=== PATIENT | male | born 2000 | race Caucasian/White ===

== ENCOUNTER 2022-06-02 15:42 | Emergency (ER) | payer OTHER, MEDICAID, SELFPAY ==
[2022-06-02 16:32] VITALS: BP 138/62; PULSE 80; RESP 20; TEMP 36.6; O2SAT 98; BMI 31.4
--- NOTE | 2022-06-02 18:45 | ED.MALEGU ---
HPI - Male Genitourinary General Chief complaint: Urogenital-Male Stated complaint: Blood in Urine Time Seen by Provider: 06/02/22 18:44 Source: family Mode of arrival: Wheelchair Limitations: no limitations History of Present Illness HPI Narrative: This is a 21-year-old male with history of Angelman syndrome, seizure disorder, behavioral issues and peptic ulcer disease. Mom states she noticed that over the last several days his urine has been dark and had an odor, today she noticed blood when he urinated that seems to be just very small amount or pinkish coloration. Patient is incontinence so he urinates and diapers. Patient has not had fevers. He seems slightly more irritated than normal. He is nonverbal. She has not appreciated significant changes in his mentation. Patient has not had any nausea or vomiting, no chest pain or shortness of breath, no new diarrhea or constipation issues. He does take MiraLax fairly regularly for constipation but has been stooling regularly. She has not appreciate any changes to genitalia, no swelling, redness, rashes or other changes. She states he is allergic to Vantin and lamotrigine. She states would be helpful to use an antibiotic that can be crushed but he can take small pills. Related Data Previous Rx's Medication Instructions Recorded sulfamethoxazole 800 1 tab PO Q12H #14 tabs 06/02/22 mg-trimethoprim 160 mg tablet (Bactrim DS) Allergies Allergy/AdvReac Type Severity Reaction Status Date / Time cefpodoxime [From Vantin] Allergy Hives Verified 06/02/22 16:31 lamotrigine [From Lamictal] Allergy Rash Verified 06/02/22 16:31 Review of Systems Review of Systems ROS Unobtainable: All systems reviewed & are unremarkable except as noted in HPI and below Patient History Social History Smoking Status: Never smoker Smoking Status: Never smoker Substance Use Type: does not use Exam Narrative Exam Narrative: GENERAL: Alert, male interactive, smiling HEENT: Head normocephalic, atraumatic, EOMI, pupils reactive, face symmetric, moist mucous membranes NECK: Supple, full range of motion CARDIOVASCULAR: Regular rate and rhythm without murmurs, rubs or gallops. RESPIRATORY: Breath sounds equal bilaterally, no wheezes rales or rhonchi. ABDOMEN: Soft, nontender. Normoactive bowel sounds all 4 quadrants. No guarding or rebound, rigidity, no mass : No CVA tenderness EXTREMITIES: Normal range of motion upper extremities. Patient's seated in wheelchair.. Neurovascularly intact NEUROLOGICAL: Cranial nerves II through XII grossly intact. Moving all extremities SKIN: Warm, dry, no petechiae, no rashes or lesions. Initial Vital Signs Initial Vital Signs: Vital Signs Temperature 98 F 06/02/22 16:32 Pulse Rate 80 06/02/22 16:32 Respiratory Rate 20 06/02/22 16:32 Blood Pressure 138/62 06/02/22 16:32 Pulse Oximetry 98 06/02/22 16:32 Oxygen Delivery Method 06/02/22 16:32 Course Orders Ordered: Discontinued Medications Trimethoprim/Sulfamethoxazole (Trimeth/Sulfa 160/800 (Ds) Tablet) 1 tab PO NOW ONE Stop: 06/02/22 19:00 Last Admin: 06/02/22 19:23 Dose: 1 tab Documented By: SB Vital Signs Vital signs: Vital Signs - 8 hr 06/02/22 16:32 Temperature 98 F Pulse Rate 80 Respiratory Rate 20 Blood Pressure 138/62 Pulse Oximetry 98 Oxygen Delivery Method Room Air MDM - Male Genitourinary Lab Data Labs: Lab Results 06/02/22 Range/Units 19:01 Urine RBC 5-10/hpf H (0-5/HPF) Urine WBC 5-10/hpf H (0-5/HPF) Ur Squamous Epith Cells 1-5 /hpf (0-5/HPF) Amorphous Sediment 1+ Urine Bacteria Many (>30) H (None) Urine Dip Bedside Urine Glucose Negative Bedside Urine Bilirubin - Negative Bedside Urine Ketone - Negative Urine Specific [place] 1.015 Bedside Urine Occult Blood +++ Bedside Urine pH 6.5 Bedside Urine Protein + 30 Bedside Urine Urobilinogen - Negative Bedside Urine Nitrite + Positive Bedside Urine Leukocytes + 70 Esterase MDM Narrative Medical decision making narrative: This is a 21-year-old male with change in urination with odor, mom appreciate some blood, seems a little bit more irritated but otherwise normal baseline. Mom appreciates that he does take baths regularly and sometimes accidentally has stool in the bath tub water. But has never had any known UTIs or urine issues has nitrates, leuks and blood on his urine patient does not appear to be in significant pain making kidney stone less likely discussion with mother will treat with antibiotics for UTI with return precautions. Discharge Plan Departure Patient Disposition: Home Clinical Impression: Urinary tract infection Instructions: DI for Urinary Tract Infection (UTI) Activity Restrictions/Additional Instructions: Follow-up with your physician for recheck if symptoms have not resolved. Urine culture takes 48-72 hours to result if your urine culture shows resistance you would be contacted to change antibiotics. Take Bactrim 1 tablet twice daily until gone. You can crush this medication. Prescription sent to [facility] in [place]. Please return for fevers, changes in mental status, persistent vomiting, increasing difficulty with urination, large frequent blood clots, if you are not making urine, or have other new or concerning changes. Prescriptions: New sulfamethoxazole-trimethoprim [Bactrim DS] 800-160 mg tablet 1 tab PO Q12H Qty: 14 0RF Referrals: Miscellaneous,Doctor, MD [Primary Care Provider] - Visit Report Forms: Patient Portal/API
--- NOTE | 2022-06-02 19:03 | PC.NURSE ---
pt is developementally delayed but mother states he has had some blood in his briefs the last few days and seems to have pain with urination. pt is nonverbal.
[2022-06-02] MEDS: TRIMETH/SULFA 160/800 (DS) TABLET 1 TAB PO (19:23)
[2022-06-02 19:49] LABS: Amorphous Sediment Urine 1+; Bacteria Urine Many (>30); RBC Urine 5-10/HPF (0-5/HPF); Squamous Epithelial Cell Urine 1-5 /HPF (0-5/HPF); WBC Urine 5-10/HPF (0-5/HPF)
== END 2022-06-02 19:36 | disposition home or self-care (01) ==
PROVIDERS: Emergency Provider Emergency Medicine
DX: N39.0 Urinary tract infection, site not specified (principal)
CPT/HCPCS: 81003; 81015; 87077; 87086; 87186; 99283

== ENCOUNTER 2022-06-11 10:35 | Emergency (ER) | payer OTHER, MEDICAID, SELFPAY ==
[2022-06-11 10:52] VITALS: BP 157/101; PULSE 77; RESP 20; O2SAT 99
--- NOTE | 2022-06-11 11:04 | DI.RAD.S_ITS ---
PROCEDURE: XR ABDOMEN 1V INDICATIONS: Swallowed object, vomiting TECHNIQUE: One view of the abdomen acquired. COMPARISON: None. FINDINGS: Surgical changes and devices: None. Bowel: Bowel gas pattern is normal. Soft tissues: No suspicious abdominal calcifications. Visualized solid organ contours appear normal in size. Bones: No suspicious bony lesions. IMPRESSION: Nonobstructive bowel gas pattern. No radiopaque foreign body. Approved by: Shawn Farrell M.D. on 06/11/2022 at 10:34
--- NOTE | 2022-06-11 11:04 | ED_ITS ---
HPI - Nausea/Vomiting/Diarrhea General Chief complaint: Nausea/Vomiting/Diarrhea Stated complaint: sweating V thinks he might've swallowed toy t-1 Time Seen by Provider: 06/11/22 10:41 Source: patient Mode of arrival: Wheelchair History of Present Illness HPI Narrative: Patient is a 21-year-old male. Is developmentally delayed. Is here with his mother. The patient can not provide any HPI review of systems. The mother states that she thinks that yesterday he swallowed a silicone piece of a shoe toy. She describes in his around in about the size of a quarter but somewhat thicker than that. She is not sure if he actually swallowed it but it was missing yesterday and today he is started to vomit. He is also sweating profusely. He can not provide any information. Mother states he did eat this morning. Had a normal bowel movement. Was able to tolerate his pills. Has no respiratory distress. Related Data Previous Rx's Medication Instructions Recorded sulfamethoxazole 800 1 tab PO Q12H #14 tabs 06/02/22 mg-trimethoprim 160 mg tablet (Bactrim DS) ondansetron 4 mg disintegrating 4 mg PO Q6H PRN nausea and 06/11/22 tablet vomiting #10 tabs Allergies Allergy/AdvReac Type Severity Reaction Status Date / Time cefpodoxime [From Vantin] Allergy Hives Verified 06/11/22 10:59 lamotrigine [From Lamictal] Allergy Rash Verified 06/11/22 10:59 Review of Systems Review of Systems Narrative: Provided by mother Constitutional Constitutional: Reports system reviewed and no additional complaints, except as documented Respiratory Respiratory: Reports system reviewed and no additional complaints, except as documented Gastrointestinal Gastrointestinal: Reports system reviewed and no additional complaints, except as documented Integumentary/Breasts Skin/Breast: Reports system reviewed and no additional complaints, except as documented Patient History Medical History Urinary tract infection Social History Smoking Status: Never smoker Smoking Status: Never smoker Substance Use Type: does not use Exam Initial Vital Signs Initial Vital Signs: Vital Signs Pulse Rate 77 06/11/22 10:52 Respiratory Rate 20 06/11/22 10:52 Blood Pressure 157/101 H 06/11/22 10:52 Pulse Oximetry 99 06/11/22 10:52 Oxygen Delivery Method 06/11/22 10:52 Const General: diaphoretic HENMT Head: normal to inspection and normocephalic Resp Effort & Inspection: normal respiratory effort Auscultation: clear to auscultation bilaterally Cardio Rate: regular rate GI Inspection: normal to inspection and non-distended Skin General: no rashes or lesions noted Extrem General: normal to inspection Course Orders Ordered: ED Orders 06/11/22 11:04 XR abdomen 1V Stat XR chest 1V Stat 06/11/22 12:41 Covid-19 + FLU A/B + RSV - PCR Stat Discontinued Medications Ondansetron HCl (Ondansetron 4 Mg Odt) 4 mg SL NOW ONE Stop: 06/11/22 11:05 Last Admin: 06/11/22 11:23 Dose: 4 mg Documented By: AYSE Vital Signs Vital signs: Vital Signs - 8 hr 06/11/22 10:52 06/11/22 12:44 06/11/22 13:48 Temperature 98.0 F 97.5 F L Pulse Rate 77 Respiratory Rate 20 Blood Pressure 157/101 H Pulse Oximetry 99 Oxygen Delivery Method Room Air MDM - Nausea/Vomiting/Diarrhea Lab Data Labs: Lab Results 06/11/22 Range/Units 12:41 SARS-CoV-2 (PCR) Negative (Negative) Influenza A (RT-PCR) Flu a negative (NEGATIVE) Influenza B (RT-PCR) Flu b negative (NEGATIVE) RSV (PCR) Negative (Negative) Imaging Data Chest x-ray: Radiologist's Impression: [address] [address] XRay Report Signed Patient: Nicolas Beard MR#: [id number] : 2000 Acct:[id number] Age/Sex: 21 / M Date of Service: 06/11/22 Loc: ED Accession Number: [id number] ?? Procedure: XR chest 1V Ordering Provider: Marty Solis D.O. PROCEDURE:? XR CHEST 1V ? INDICATIONS:? vomiting ? TECHNIQUE:? One view of the chest was acquired.? ? COMPARISON:? None. ? FINDINGS:? ? Surgical changes and devices:? None.? ? Lungs and pleura:? Increased perihilar bronchovascular markings noted, accentuated by low lung volumes ? Mediastinum:? Mediastinal contours appear normal.? Heart size is normal.? ? Bones and chest wall:? No suspicious bony lesions.? Overlying soft tissues appear unremarkable.? ? IMPRESSION:? Increased perihilar bronchovascular markings and peribronchial cuffing particularly on the left could reflect bronchiolitis. ? No radiopaque foreign body ? ? ? Approved by: Shawn Farrell M.D. on 06/11/2022 at 10:35? Abdominal x-ray: Radiologist's Impression: [address] [address] XRay Report Signed Patient: Nicolas Beard MR#: [id number] : 2000 Acct:[id number] Age/Sex: 21 / M Date of Service: 06/11/22 Loc: ED Accession Number: [id number] ?? Procedure: XR abdomen 1V Ordering Provider: Marty Solis D.O. PROCEDURE:? XR ABDOMEN 1V ? INDICATIONS:? Swallowed object, vomiting ? TECHNIQUE:? One view of the abdomen acquired.? ? COMPARISON:? None. ? FINDINGS:? ? Surgical changes and devices:? None.? ? Bowel:? Bowel gas pattern is normal.? ? Soft tissues:? No suspicious abdominal calcifications.? Visualized solid organ contours appear normal in size.? ? Bones:? No suspicious bony lesions.? ? IMPRESSION:? Nonobstructive bowel gas pattern.? No radiopaque foreign body. ? ? ? Approved by: Shawn Farrell M.D. on 06/11/2022 at 10:34? [facility] Narrative Medical decision making narrative: Patient's symptoms did seem to improve with the Zofran. Given his underlying developmental and cognitive issues it is difficult to completely ascertain exactly what is wrong. Had a discussion with mother that the silicone object that he swallowed most likely would not show up on a x-ray. Given the description of it there would be no indication for an emergent surgical/GI consultation for removal. He has tolerated oral intake and also his medications and I feel that a obstructing esophageal foreign body is unlikely. He is also had no respiratory distress. His lungs are clear. I feel that aspiration is less likely as well. After the Zofran he did improve so will send the patient home with [facility]. Mother understands his mannerisms very well and she feels that if his symptoms worsen or if he starts to develop other mannerisms that be consistent with discomfort that she would return to the emergency department for further evaluation. Discharge Plan Departure Patient Disposition: Home Clinical Impression: Vomiting Instructions: DI for Vomiting -- Adult Activity Restrictions/Additional Instructions: A prescription for nausea medications was sent to the pharmacy of your choice. Please use them as needed and as directed. There is no restrictions on his diet. Return to the emergency department for any new or worsening symptoms. Prescriptions: New ondansetron 4 mg tablet,disintegrating 4 mg PO Q6H PRN (Reason: nausea and vomiting) Qty: 10 0RF No Action sulfamethoxazole-trimethoprim [Bactrim DS] 800-160 mg tablet 1 tab PO Q12H Qty: 14 0RF Referrals: Miscellaneous,Doctor, MD [Primary Care Provider] - Visit Report Forms: Patient Portal/API
--- NOTE | 2022-06-11 11:04 | DI.RAD.S_ITS ---
PROCEDURE: XR CHEST 1V INDICATIONS: vomiting TECHNIQUE: One view of the chest was acquired. COMPARISON: None. FINDINGS: Surgical changes and devices: None. Lungs and pleura: Increased perihilar bronchovascular markings noted, accentuated by low lung volumes Mediastinum: Mediastinal contours appear normal. Heart size is normal. Bones and chest wall: No suspicious bony lesions. Overlying soft tissues appear unremarkable. IMPRESSION: Increased perihilar bronchovascular markings and peribronchial cuffing particularly on the left could reflect bronchiolitis. No radiopaque foreign body Approved by: Shawn Farrell M.D. on 06/11/2022 at 10:35
[2022-06-11] MEDS: ONDANSETRON 4 MG ODT SL (11:23)
[2022-06-11 12:44] VITALS: TEMP 36.7
[2022-06-11 13:30] LABS: Influenza A - CEPHEID Flu A NEGATIVE (NEGATIVE); Influenza B - CEPHEID Flu B NEGATIVE (NEGATIVE); Respiratory Syncytial Virus Negative (Negative)
[2022-06-11 13:48] VITALS: TEMP 36.4
[2022-06-11 13:56] LABS: COVID-19 CEPHEID 4-PLEX PCR Negative (Negative)
== END 2022-06-11 14:29 | disposition home or self-care (01) ==
PROVIDERS: Emergency Provider Emergency Medicine
DX: R11.10 Vomiting, unspecified (principal); Z20.822 Contact with and (suspected) exposure to COVID-19
CPT/HCPCS: 0241U; 71045; 74018; 99283

== ENCOUNTER 2023-01-11 12:58 | Emergency (ER) | payer OTHER, MEDICAID, SELFPAY ==
[2023-01-11 13:01] VITALS: PULSE 69; RESP 15; TEMP 36.1; O2SAT 96
--- NOTE | 2023-01-11 13:03 | ED_ITS ---
HPI - Male Genitourinary General Chief complaint: Urogenital-Male Stated complaint: ear infection/possible uti Time Seen by Provider: 01/11/23 13:02 History of Present Illness HPI Narrative: This is a 22-year-old male with history of Angelman syndrome, seizure disorder, behavioral issues, peptic ulcer disease and is wheelchair dependent is here with his mother, the patient provide any HPI review of systems. Mother thinks that patient has a urinary tract infection, he is had history of this in the past, and she is also concerned about an ear infection. She states that over the last several days his urine Patient is incontinent at baseline and urinates in diapers. She states that he seems more irritated than normal and is nonverbal. Patient has history of allergy to cefpodoxime, lamotrigine, and mupirocin. Patient has a history of E coli growth in his urine which was pansensitive from 06/02/2022. Patient has had odor in his urine for the last 2 days mother states that she remembers this from the last time he had a urinary tract infection. States that she has not found any blood in his diaper this time, but she remember the smell as similar. He has been voiding more frequently and acting like his right ear is bothering him. Patient has been receiving ofloxacin for right otitis externa infection and has completed 5 days treatment without full resolution but it has mildly improved. Mother denies fevers, vomiting or behavioral changes. Related Data Previous Rx's Medication Instructions Recorded sulfamethoxazole 800 1 tab PO Q12H #14 tabs 06/02/22 mg-trimethoprim 160 mg tablet (Bactrim DS) ondansetron 4 mg disintegrating 4 mg PO Q6H PRN nausea and 06/11/22 tablet vomiting #10 tabs amoxicillin 400 mg-potassium 12 ml PO BID 8 days #192 mL 01/11/23 clavulanate 57 mg/5 mL oral suspension ciprofloxacin 0.3 %-dexamethasone 4 drp EAR-RIGHT BID outer ear 01/11/23 0.1 % ear drops,suspension infection 7 days #7.5 mL (Ciprodex) Allergies Allergy/AdvReac Type Severity Reaction Status Date / Time cefpodoxime [From Vantin] Allergy Hives Verified 01/11/23 13:01 lamotrigine [From Lamictal] Allergy Rash Verified 01/11/23 13:01 Sulfa (Sulfonamide Allergy Verified 01/11/23 13:42 Antibiotics) Review of Systems Review of Systems ROS Unobtainable: All systems reviewed & are unremarkable except as noted in HPI and below Patient History Medical History Urinary tract infection Social History Smoking Status: Never smoker Smoking Status: Never smoker Substance Use Type: does not use Exam Narrative Exam Narrative: Reviewed vitals signs and nursing notes. General: Pleasant, sitting upright, in no acute distress, well groomed, afebrile HEENT: symmetrical facial expressions, moist mucous membranes, neck is supple, right ear canal is erythematous, some white discharge is present, TM is intact, moderate erythema of the canal and scent of fungal infection. No mastoid tenderness, left TM with normal landmarks and without erythema in the canal CV: regular rate and rhythm, warm extremities Respiratory: normal work of breathing, without tachypnea or hypoxia. GI: abdomen soft, nondistended, without CVA tenderness bilaterally. MSK: moves all extremities, no weakness, normal tone, ambulatory without deficit Skin: brisk capillary refill, without rash or wound Neuro: Patient is normal for his baseline per mother's report Initial Vital Signs Initial Vital Signs: Vital Signs Temperature 97.0 F L 01/11/23 13:01 Pulse Rate 69 01/11/23 13:01 Respiratory Rate 15 01/11/23 13:01 Pulse Oximetry 96 01/11/23 13:01 Oxygen Delivery Method Room Air 01/11/23 13:01 Course Orders Ordered: ED Orders 01/11/23 13:02 Urine Microscopic Stat 01/11/23 13:34 Urine Culture Stat Urine Microscopic Stat Vital Signs Vital signs: Vital Signs - 8 hr 01/11/23 13:01 Temperature 97.0 F L Pulse Rate 69 Respiratory Rate 15 Pulse Oximetry 96 Oxygen Delivery Method Room Air MDM - Male Genitourinary Lab Data Lab results narrative: Patient's urine dip is positive for blood, leukocytes, nitrites Labs: Lab Results 01/11/23 Range/Units 13:26 Urine RBC 0-1/hpf (0-5/HPF) Urine WBC 30-100/hpf H (0-5/HPF) Ur Squamous Epith Cells 1-5 /hpf (0-5/HPF) Urine Bacteria Many (>30) H (None) Ur Culture Indicated? Specimen cultured Urine Dip Bedside Urine Glucose Negative Bedside Urine Bilirubin - Negative Bedside Urine Ketone - Negative Urine Specific [place] 1.010 Bedside Urine Occult Blood +++ Bedside Urine pH 9.0 Bedside Urine Protein + 30 Bedside Urine Urobilinogen +/- 1mg Bedside Urine Nitrite + Positive Bedside Urine Leukocytes ++ 125 Esterase MDM Narrative Medical decision making narrative: Chief Complaint: Concern for right outer ear infection and urinary tract infection Primary historian: Mother patient Multiple etiologies for patient's complaint considered including, but not limited to: Otitis externa, fungal otitis media, bacterial otitis media, urinary tract infection, penile infection, diaper rash, pyelonephritis I have independently reviewed the patient's vital signs and nursing notes as well as prior records if available. Course of care: Exam significant for the x-ray right otitis externa without TM rupture, urine shows bacteria, WBCs nitrites and blood. Patient's mother states that patient developed a rash while taking Bactrim most recently and he does not have an allergy to Bactroban but his allergy is actually due to sulfa and they were seen by provider for this. He also has allergies to cefpodoxime, lamotrigine. He has not seen ENT in the past. Recommend follow-up with ENT if this is recurrent, prescribed Ciprodex x7 days, Augmentin b.i.d. for urinary tract infection x8 days with a suspension for ease of administration due to cognitive delay. They understand to follow up with ENT if any worsening or return to the emergency department for fever, abdominal pain or vomiting, or no improvement. Urine culture is pending. Social considerations that may affect disposition: none Questions are addressed and there is agreement with the plan and for follow-up. I consulted with the ED attending physician Dr. Erickson as needed for higher level of care considerations and they were available for discussion and recommendations regarding plan of care and diagnostic testing. Patient is appropriate for outpatient management. Discharge Plan Departure Patient Disposition: Home Clinical Impression: Acute UTI Otitis externa Qualifiers: Otitis externa type: unspecified type Chronicity: acute Laterality: right Qualified Code(s): H60.501 - Unspecified acute noninfective otitis externa, right ear Instructions: DI for Urinary Tract Infection (UTI), DI for Otitis Externa Activity Restrictions/Additional Instructions: *You have been diagnosed with a urinary tract infection and a right outer ear infection not responding to the antibiotic. Please start with this new drop called Ciprodex 4 drops in his right ear 2 times daily for 7 days. Follow-up with Dr. Priest at your nose and throat if this becomes a recurrent problem. The urine is positive for infection, we will treat this with Augmentin. If he develops a rash while taking this medication, please bring him back in for evaluation. If he starts vomiting, please bring him back in also. I have given you a liquid so that he can drink this, 12 mL 2 times daily for 8 days. Please start this today and give him 1 dose now and 1 dose this evening. I hope he feels better soon, thank you for bringing him in and taking good care of him. It was a pleasure to meet you both. *What to do: *Please continue to take your regular medications as directed. [ x] New medication prescriptions sent to your pharmacy: [ [facility]] [ ] New medication written as a paper prescription [ ] No new medications given *Please call and schedule follow up with your primary care provider in 2-3 days, at least for an update. Let them know you were seen in the Emergency Department for the above problem. We will electronically transmit a record of today's note if your PCP or specialist is in our system. *If you do not have a primary care provider please contact [phone] to establish care with one of the [facility] primary care providers. *Return to the Emergency Department for worsening symptoms, inability to keep liquids down, fever greater than 101F, chills, or other concerning symptom. Prescriptions: New ciprofloxacin-dexamethasone [Ciprodex] 0.3-0.1 % drops,suspension 4 drp EAR-RIGHT BID 7 Days Qty: 7.5 0RF amoxicillin-pot clavulanate 400-57 mg/5 mL suspension for reconstitution 12 ml PO BID 8 Days Qty: 192 0RF No Action sulfamethoxazole-trimethoprim [Bactrim DS] 800-160 mg tablet 1 tab PO Q12H Qty: 14 0RF ondansetron 4 mg tablet,disintegrating 4 mg PO Q6H PRN (Reason: nausea and vomiting) Qty: 10 0RF Referrals: Gavin Priest MD [Physician] - Stand Alone Forms: Patient Portal/API
[2023-01-11 13:37] LABS: Bacteria Urine Many (>30); Culture Indicated Urine Specimen Cultured; RBC Urine 0-1/HPF (0-5/HPF); Squamous Epithelial Cell Urine 1-5 /HPF (0-5/HPF); WBC Urine 30-100/HPF (0-5/HPF)
[2023-01-11 13:46] VITALS: PULSE 70; RESP 18; O2SAT 97
== END 2023-01-11 13:47 | disposition home or self-care (01) ==
PROVIDERS: Emergency Provider Nurse Practitioner Critical Care Medicine
DX: N39.0 Urinary tract infection, site not specified (principal); H60.501 Unspecified acute noninfective otitis externa, right ear; Q93.51 Angelman syndrome
CPT/HCPCS: 81003; 81015; 87077; 87086; 87186; 99282

== ENCOUNTER → 2023-05-27 14:02 | Outpatient (CLI) | payer OTHER, MEDICAID, SELFPAY ==
[2023-05-27 15:48] LABS: Add Manual Diff / Slide Review NO; Basophils Absolute Auto 0 /uL (0-100); Basophils Percent Auto 0.5 % (0-2); Eosinophils Absolute Auto 100 /uL (0-450); Eosinophils Percent Auto 1.5 % (2-4); Hematocrit 49.2 % (41-53); Hemoglobin 17.2 g/dL (13.5-17.5); Lymphocytes Absolute Auto 3400 /uL (1100-4500); Mean Corpuscular Volume 88.5 fL (80-100); Monocytes Absolute Auto 900 /uL (0-900); Monocytes Percent Auto 10.9 % (3-14); Neutrophils Absolute Auto 4000 /uL (1500-7000); Neutrophils Percent Auto 47.1 % (50-75); Platelet Count 183 X10^3/uL (150-400); Red Blood Cell Count 5.55 X10^6/uL (4.5-5.9); Red Cell Distribution Width 13.3 % (11.6-14.8); White Blood Cell Count 8.4 X10^3/uL (4.5-11.0)
[2023-05-27 16:10] LABS: HEMOLYSIS 33 (0-50); Iron 179 ug/dL (49-181)
[2023-05-27 16:11] LABS: Alanine Aminotransferase 23 IU/L (<50); Albumin 4.6 g/dL (3.5-5.0); Albumin Globulin Ratio 1.5 (1.0-2.8); Alkaline Phosphatase 96 U/L (38-126); Aspartate Aminotransferase 32 IU/L (17-59); BUN Creatinine Ratio 29.8 (6-22); Bilirubin Total 0.5 mg/dL (0.2-1.3); Blood Urea Nitrogen 17 mg/dL (9-20); Calcium 9.8 mg/dL (8.4-10.2); Carbon Dioxide 24 mmol/L (22-32); Chloride 105 mmol/L (98-107); Estimated Glomerular Filt Rate > 60 mL/min (>60); Glucose 75 mg/dL (70-100); HEMOLYSIS 32 (0-50); Potassium 4.9 mmol/L (3.4-5.1); Sodium 141 mmol/L (137-145); Total Protein 7.6 g/dL (6.3-8.2)
[2023-05-27 16:20] LABS: Percent Iron Saturation 46 % (20-50); Total Iron Binding Capacity 388 ug/dL (261-462); Transferrin 310 mg/dL (206-381)
[2023-05-27 16:26] LABS: Vitamin D 25 Hydroxy (D3) 45.8 ng/mL (30.0-100.0)
[2023-05-28 02:35] LABS: Valproic Acid (Depakene) Total 88 ug/mL (50-100)
[2023-05-29 12:36] LABS: Ethosuximide (Zarontin), Serum 68 ug/mL (40-100)
[2023-05-30 08:54] LABS: Levetiracetam Keppra 15.3 ug/mL (10.0-40.0)
[2023-06-06 17:00] LABS: Carnitine, Free 29 umol/L (20-55); Esterified/Free Ratio 0.2 Ratio (0.0-0.9)
== END ==
PROVIDERS: Referring Provider Psychiatry & Neurology Neurology; Visit Provider Psychiatry & Neurology Neurology
DX: G40.419 Other generalized epilepsy and epileptic syndromes, intractable, without status epilepticus (principal)
CPT/HCPCS: 36415; 80053; 80164; 80168; 80177; 82306; 82379; 83540; 83550; 85025

== ENCOUNTER 2023-09-03 18:26 | Emergency (ER) | payer OTHER, MEDICAID, SELFPAY ==
[2023-09-03 18:40] VITALS: PULSE 86; RESP 17; TEMP 36.6; O2SAT 95
--- NOTE | 2023-09-03 19:07 | PC.NURSE ---
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 Mom states starting yesterday pt began having trouble sleeping, which is unusual for pt. Mom then noticed he had foul smelling urine tonday with some blood in his diaper. Mom states he has had UTIs in the past with similar presentation. At 1850 mom changed soiled diaper with urine. Pt is both continent and incontinent wit urine. Will keep trying to obtain urine sample. Pt currently not allowing for BP to be obtained. All other vital signs stable.
--- NOTE | 2023-09-03 19:37 | ED.MALEGU ---
HPI - Male Genitourinary General Chief complaint: Urogenital-Male Stated complaint: UTI Time Seen by Provider: 09/03/23 18:39 Source: family Mode of arrival: Wheelchair History of Present Illness HPI Narrative: 22-year-old male with history of severe autism spectrum disorder, nonverbal at baseline presents with his mother for possible UTI. Mother states that patient gets a urinary tract infection once every 4-6 months. Symptoms include pain with urination, holding his urine, and crying at night when he urinates. Related Data Home Medications Medication Instructions Recorded Confirmed divalproex 125 mg capsule,delayed 325 mg PO BID 09/03/23 09/03/23 release sprinkle ethosuximide 250 mg/5 mL oral mg PO 09/03/23 solution levetiracetam 250 mg tablet 250 mg PO BID 09/03/23 09/03/23 (Keppra) Previous Rx's Medication Instructions Recorded nitrofurantoin macrocrystal 100 mg 100 mg PO Q12H #14 caps 09/03/23 capsule Allergies Allergy/AdvReac Type Severity Reaction Status Date / Time cefpodoxime [From Vantin] Allergy Hives Verified 09/03/23 18:42 lamotrigine [From Lamictal] Allergy Rash Verified 09/03/23 18:42 mupirocin [From Bactroban] Allergy Verified 09/03/23 18:42 Sulfa (Sulfonamide Allergy Verified 09/03/23 18:42 Antibiotics) Review of Systems Review of Systems Narrative: Otherwise negative, per mother Patient History Medical History Urinary tract infection Social History Smoking Status: Never smoker Smoking Status: Never smoker Substance Use Type: does not use Exam Initial Vital Signs Initial Vital Signs: Vital Signs Temperature 97.9 F 09/03/23 18:40 Pulse Rate 86 09/03/23 18:40 Respiratory Rate 17 09/03/23 18:40 Pulse Oximetry 95 09/03/23 18:40 Oxygen Delivery Method Room Air 09/03/23 18:40 Const: Awake, alert, no acute distress, nontoxic appearing Neuro: At baseline per mother, moves all extremities Course Orders Ordered: Discontinued Medications Nitrofurantoin Macrocrystals (Nitrofurantoin Er 100 Mg Capsule) 100 mg PO NOW ONE Stop: 09/03/23 20:10 Last Admin: 09/03/23 20:14 Dose: 100 mg Documented By: HARIS Vital Signs Vital signs: Vital Signs - 8 hr 09/03/23 18:40 Temperature 97.9 F Pulse Rate 86 Respiratory Rate 17 Pulse Oximetry 95 Oxygen Delivery Method Room Air MDM - Male Genitourinary Differential Diagnosis Differential diagnosis: Likely urinary tract infection, acute retention of urine and inguinal hernia MDM Narrative Medical decision making narrative: Possible urinary tract infection. Attempted to get urine sample, however patient not providing sample and becomes very agitated when mother or staff attempt to get him to provide a sample. Mother states the child will not tolerate a catheterization and the frequent attempts to provide a urine sample are agitating him. She was concerned that the patient may get upset and act out. Mother states that the patient's primary care physician we will usually call in a prescription for Macrobid when patient has urinary symptoms, which usually relieves the infection. While it is preferable to obtain a urine sample for culture I understand why we can not obtain a sample right now without causing distress to both patient and mother. We will order single dose of Macrobid to start and we will send prescription to desired pharmacy. Mother counseled to return to the emergency department if symptoms do not improve with the prescribed medication as we will need a sample at that time to help guide further treatment. Discharge Plan Departure Patient Disposition: Home Clinical Impression: Urinary tract infection Instructions: DI for Urinary Tract Infection (UTI) Prescriptions: New nitrofurantoin macrocrystal 100 mg capsule 100 mg PO Q12H Qty: 14 0RF Rx Instructions: must administer with a meal/food No Action levetiracetam [Keppra] 250 mg tablet 250 mg PO BID divalproex 125 mg capsule, delayed rel sprinkle 325 mg PO BID ethosuximide 250 mg/5 mL solution PO Referrals: Miscellaneous,Doctor, MD [Primary Care Provider] - Stand Alone Forms: Patient Portal/API
--- NOTE | 2023-09-03 20:06 | PC.NURSE ---
Dr. Kline at bedside.
[2023-09-03] MEDS: NITROFURANTOIN ER 100 MG CAPSULE PO (20:14)
== END 2023-09-03 20:24 | disposition home or self-care (01) ==
PROVIDERS: Emergency Provider Emergency Medicine
DX: N39.0 Urinary tract infection, site not specified (principal)
CPT/HCPCS: 99283

== ENCOUNTER → 2023-11-19 14:43 | Outpatient (CLI) | payer OTHER, MEDICAID, SELFPAY ==
[2023-11-19 15:26] LABS: Appearance Urine UA CLEAR; Bilirubin Urine UA NEGATIVE (NEGATIVE); Color Urine UA YELLOW; Glucose Urine UA NEGATIVE (Negative); Ketones Urine UA NEGATIVE (NEGATIVE); Leukocyte Esterase Urine UA NEGATIVE (NEGATIVE); Nitrite Urine UA NEGATIVE (Negative); Occult Blood Urine UA NEGATIVE (Negative); Protein Urine UA NEGATIVE (Negative)
[2023-11-19 17:35] LABS: RBC Urine 1-5/HPF (0-5/HPF); Urine Volume 10mL (spun); WBC Urine 1-5/HPF (0-5/HPF)
[2023-11-19 17:36] LABS: Bacteria Urine Many (>30); Culture Indicated Urine Cult Not Indicated; Squamous Epithelial Cell Urine 1-5 /HPF (0-5/HPF); Triple Phosphate Crystal Urine Many
== END ==
PROVIDERS: Referring Provider Family Medicine; Visit Provider Family Medicine
DX: N39.0 Urinary tract infection, site not specified (principal)
CPT/HCPCS: 81001